=== PATIENT | female | born 1945 | race Asian ===

== ENCOUNTER 2017-07-05 15:18 | Outpatient (CLI) | payer MEDICARE, BC | END 2017-07-05 15:19 | disposition home or self-care (01) | LOC: BICMAMMO 15:18 | PROVIDERS: ATTEND Nurse Practitioner Adult Health | DX: Z13.820 Encounter for screening for osteoporosis (principal); D05.12 Intraductal carcinoma in situ of left breast; M85.852 Other specified disorders of bone density and structure, left thigh; M85.851 Other specified disorders of bone density and structure, right thigh | CPT/HCPCS: 77066; 77080; G0279 ==

== ENCOUNTER 2020-03-19 14:58 | Outpatient (CLI) | payer MEDICARE, BC ==
--- NOTE | 2020-03-19 17:51 | BD ---
Exam: DEXA Bone Density 03/19/20 INDICATIONS: Postmenopausal screening. BMD (g/cm2) T-SCORE Left femoral neck 0.597 -2.3 Total: 0.733 -1.7 Right femoral neck 0.647 -1.8 Total: 0.759 -1.5 Impression: Bone mineral density of both hips indicate osteopenia. POS: AGW
== END 2020-03-19 14:59 | disposition home or self-care (01) ==
LOC: BICMAMMO 14:58
PROVIDERS: ATTEND Obstetrics & Gynecology
DX: M81.0 Age-related osteoporosis without current pathological fracture (principal); M85.851 Other specified disorders of bone density and structure, right thigh; M85.852 Other specified disorders of bone density and structure, left thigh
CPT/HCPCS: 77080

== ENCOUNTER 2024-04-19 13:52 | Outpatient (CLI) | payer MEDICARE, BC | END 2024-04-19 13:53 | disposition home or self-care (01) | LOC: SCSMRI 13:52 | PROVIDERS: ATTEND Family Medicine | DX: M25.551 Pain in right hip (principal); M47.26 Other spondylosis with radiculopathy, lumbar region; S76.011A Strain of muscle, fascia and tendon of right hip, initial encounter; M94.351 Chondrolysis, right hip; M47.817 Spondylosis without myelopathy or radiculopathy, lumbosacral region; M47.815 Spondylosis without myelopathy or radiculopathy, thoracolumbar region; Z98.890 Other specified postprocedural states | CPT/HCPCS: 72148 ==